=== PATIENT | female | born 1935 | race Caucasian/White ===

== ENCOUNTER → 2016-10-17 | Outpatient (CLI) | payer OTHER ==
[~2016-10-17] MED LIST: ASPEC81 PO; ATEN-173 PO; IBUP-103 PO; LEVO100T7 PO; MULT-506 PO; OMEG10007 PO; SYN75 PO
[2016-10-17 14:35] LABS: BASO % 0.6 %; BASO ABS # 0.05 K/uL (0-0.2); COMPLETE YES; EOS % 2.6 %; HEMATOCRIT 44.4 % (37-47); IG% 0.1 %; LYMPH % 43.1 %; MEAN CELL VOLUME 94.1 fL (80-100); MEAN CORPUSCULAR HEMOGLOBIN 32.2 pg (25-34); MEAN CORPUSCULAR HGB CONC 34.2 g/dl (32-36); MEAN PLATELET VOLUME 10.3 fL (7.4-10.4); MONO % 7.6 %; PLATELET COUNT 278 K/uL (130-400); RED BLOOD COUNT 4.72 M/uL (4.2-5.4); WHITE BLOOD COUNT 8.12 K/uL (4.8-10.8)
[2016-10-17 14:56] LABS: ALT/SGPT 28 U/L (12-78); BLOOD UREA NITROGEN 21 mg/dl (7-18); BUN/CREATININE RATIO 25.6 (10-20); CALCIUM 9.1 mg/dl (8.5-10.1); CARBON DIOXIDE 27 mmol/L (21-32); CHLORIDE 107 mmol/L (98-107); CREATININE 0.83 mg/dl (0.60-1.20); GLUCOSE 96 mg/dl (70-99); POTASSIUM 4.4 mmol/L (3.5-5.1); SODIUM 141 mmol/L (136-145)
[2016-10-17 15:04] LABS: ALB/GLOB RATIO 1.1 (0.9-2); ALKALINE PHOSPHATASE 81 U/L (45-117); AST/SGOT 21 U/L (15-37); CHOLESTEROL 223 mg/dl (0-200); CHOLESTEROL/HDL RATIO 3.6; HDL CHOLESTEROL 62 mg/dl; LDL CHOLESTEROL CALCULATED 134 mg/dl; TRIGLYCERIDES 136 mg/dl (0-150); VERY LOW DENSITY LIPOPROT CALC 27 mg/dl
== END | disposition home or self-care (01) ==
LOC: C.LABSPEC 13:13
PROVIDERS: ATTEND Family Medicine
DX: E03.9 Hypothyroidism, unspecified (principal); E78.2 Mixed hyperlipidemia; I10 Essential (primary) hypertension

== ENCOUNTER → 2017-04-19 | Outpatient (CLI) | payer OTHER ==
[~2017-04-19] MED LIST changes: -ASPEC81 PO; -SYN75 PO
== END | disposition home or self-care (01) ==
LOC: C.LABSPEC 17:50
PROVIDERS: ATTEND Family Medicine
DX: R31.9 Hematuria, unspecified (principal)

== ENCOUNTER 2017-05-02 04:50 | Inpatient (IN) | payer OTHER ==
--- NOTE | 2017-03-30 14:34 | PAT Medication Instructions ---
Service Date Mar 30, 2017. Current Home Medication List Atenolol (Tenormin), 25 MG PO QAM Fish Oil ([place]-3), 1 CAP PO QAM Ibuprofen Tab (Advil), 200 MG PO PRN Levothyroxine Sodium (Levothyroxine Sodium), 1 TAB PO QAM Multivitamin (Multivitamin), 1 TAB PO QAM Medication Instructions For Your Scheduled Surgery - Hold the following medications 2 weeks prior to surgery: Fish Oil ([place]-3), 1 CAP PO QAM - Hold the following medications 7 days prior to surgery PER SURGEON'S INSTRUCTIONS: Ibuprofen Tab (Advil), 200 MG PO PRN - Hold the following medications the morning of surgery: Multivitamin (Multivitamin), 1 TAB PO QAM - Take the following medications the morning of surgery with a sip of water OTHERWISE NOTHING TO EAT OR DRINK AFTER MIDNIGHT: Atenolol (Tenormin), 25 MG PO QAM Levothyroxine Sodium (Levothyroxine Sodium), 1 TAB PO QAM If you have any questions please call us at [phone] or [phone] or [phone]
[2017-03-30 15:17] LABS: BASO % 0.6 %; BASO ABS # 0.05 K/uL (0-0.2); COMPLETE YES; EOS % 2.3 %; HEMATOCRIT 41.4 % (37-47); IG% 0.3 %; LYMPH % 39.8 %; MEAN CELL VOLUME 93.7 fL (80-100); MEAN CORPUSCULAR HEMOGLOBIN 31.9 pg (25-34); MEAN CORPUSCULAR HGB CONC 34.1 g/dl (32-36); MEAN PLATELET VOLUME 10.1 fL (7.4-10.4); PLATELET COUNT 224 K/uL (130-400); RED BLOOD COUNT 4.42 M/uL (4.2-5.4); WHITE BLOOD COUNT 7.79 K/uL (4.8-10.8)
[2017-03-30 15:20] LABS: URINE APPEARANCE CLEAR (CLEAR); URINE BILIRUBIN NEG (NEG); URINE COLOR YELLOW; URINE EPITHELIAL CELL AUTO 0-5 /lpf (0-5); URINE NITRITE NEG (NEG); URINE PH 5.5 (4.5-7.5); URINE SPECIFIC GRAVITY 1.015 (1.000-1.030); UROBILINOGEN NEG (NEG)
[2017-03-30 15:22] LABS: MANUAL MICROSCOPIC REQUIRED? NO; REVIEW REQ? NO
[2017-03-30 15:27] LABS: PARTIAL THROMBOPLASTIN RATIO 1.1; PROTHROMBIN TIME (PATIENT) 10.5 SECONDS (9.0-12.0)
[2017-03-30 15:37] LABS: BUN/CREATININE RATIO 22.2 (10-20); CALCIUM 9.2 mg/dl (8.5-10.1); CREATININE 1.06 mg/dl (0.60-1.20); POTASSIUM 4.2 mmol/L (3.5-5.1)
--- NOTE | 2017-03-30 15:39 | DIAGNOSTIC IMAGING REPORT ---
TWO VIEW CHEST CLINICAL HISTORY: Preoperative examination. FINDINGS: PA and lateral chest radiographs are obtained. No prior studies are available for comparison at the time of dictation. The cardiomediastinal silhouette is unremarkable. There is atherosclerotic calcification of the thoracic aorta. Tiny calcified granulomas are noted in the right lung. The lungs and pleural spaces are otherwise clear. There is no pneumothorax. The skeletal structures are osteopenic. A left shoulder arthroplasty is in place. IMPRESSION: No active disease in the chest. Electronically signed by: Arsh Hsieh M.D. 03/30/2017 3:37 PM Dictated Date/Time: 03/30/2017 3:37 PM
[2017-03-31 07:18] LABS: ESTIMATED AVERAGE GLUCOSE 123 mg/dl; HA1C FLAG Normal (Normal)
--- NOTE | 2017-05-01 20:24 | HISTORY & PHYSICAL EXAMINATION ---
DATE OF ADMISSION: 05/02/2017 CHIEF COMPLAINT: Chronic left knee pain. HISTORY OF PRESENT ILLNESS: This is an 82-year-old female patient of Dr. Mejia, complaining of chronic left knee pain, longstanding, now progressively getting worse. The patient has failed conservative treatment including intraarticular injections and the use of anti-inflammatories. The patient has increased pain with weightbearing activities and her pain does interfere with her activities of daily living. PAST MEDICAL HISTORY: Hypertension, hypothyroidism, osteoarthritis, dental issues. SOCIAL HISTORY: Nonsmoker, nondrinker. SURGICAL HISTORY: Left shoulder surgery, right hip surgery. FAMILY HISTORY: Noncontributory. REVIEW OF SYSTEMS: The patient complains of chronic left knee pain, otherwise denies any shortness of breath, chest pain, nausea, vomiting or other joint complaints. MEDICATIONS: Synthroid 100 mcg daily, atenolol 25 mg daily and a multivitamin daily. ALLERGIES: INCLUDE MICRODANTIN, LATEX, OXYCODONE AND POLYSORB. PHYSICAL EXAMINATION: GENERAL: Well-developed, well-nourished 82-year-old female in no acute distress. She is alert and oriented x3 and pleasant. HEENT: Normocephalic, atraumatic. Extraocular motions are intact. Pupils are equal and reactive to light. HEART: Regular rate and rhythm, no murmurs appreciated. LUNGS: Clear. ABDOMEN: Soft and nontender, bowel sounds are present. EXTREMITIES: Left knee reveals a valgus deformity with 0-130 degrees of range of motion. She has lateral joint line tenderness. She has crepitation with passive range of motion. She has 5/5 strength. NEUROLOGIC AND NEUROVASCULAR: She is intact in her left lower extremity. DIAGNOSES: Left knee end-stage osteoarthritis with a history of hypertension, hypothyroidism, osteoarthritis, dental issues. PLAN: The patient was advised of her diagnosis. Indications, risks, benefits and postop course have all been reviewed. The patient wished to proceed with left total knee arthroplasty. Necessary consent forms, preoperative testing and clearances will be obtained.
[~2017-05-02] VITALS: Ht 154.9 cm; Wt 74.3 kg
[2017-05-02] VITALS (10 sets, daily range): BP systolic 144–179; BP diastolic 63–94; PULSE 52–94; TEMP 36.3–36.6; O2SAT 93–99; Ht 154.9 cm; Wt 74.3 kg
[2017-05-02] MEDS ORDERED: LACTATED RINGER'S 1000ML IV SCH (06:00)
[2017-05-02] MEDS ORDERED: LACTATED RINGER'S 1000ML 500 ML IV ONE (06:00)
[2017-05-02] MEDS ORDERED: LACTATED RINGER'S 1000ML 1,000 ML IV SCH (06:00)
[2017-05-02] MEDS ORDERED: FAMOTIDINE 20 MG TAB PO SCH (06:00)
[2017-05-02] MEDS ORDERED: ROPIVACAINE 5MG/ML 30 ML 150 MG, BUPIVACAINE 0.5% MPF INJ 30 ML, EpINEphrine HCL INJ 0.... INFIL SCH ×8 (06:00)
[2017-05-02] MEDS ORDERED: DEXAMETHASONE 4 MG TAB PO SCH (06:00)
[2017-05-02] MEDS ORDERED: GABAPENTIN 300 MG CAP PO SCH (06:00)
[2017-05-02] MEDS ORDERED: ACETAMINOPHEN 500 MG TAB PO SCH (06:00)
[2017-05-02] MEDS ORDERED: CeleBREX 200 MG CAP PO SCH (06:00)
[2017-05-02] MEDS ORDERED: METOCLOPRAMIDE HCL 10 MG TAB PO SCH (06:00)
[2017-05-02] MEDS ORDERED: BUPIVACAINE 0.5 % 5 MG/1 ML PF 10ML VIAL ONE (06:19)
[2017-05-02] MEDS ORDERED: BUPIVACAINE 0.25% 30 ML VIAL ONE (06:19)
[2017-05-02] MEDS ORDERED: EpINEphrine INJ 1MG/ML AMP 1 MG/ML AMP ONE (06:19)
[2017-05-02] MEDS ORDERED: DEXAMETHASONE SOD INJ 4 MG/ML VIAL ONE (06:20)
[2017-05-02] MEDS ORDERED: POVIDONE-IODINE OP SOLN 30 ML BTL ONE (06:28)
[2017-05-02] MEDS ORDERED: ORTHO JOINT ANESTHETIC ONE (06:28)
[2017-05-02] MEDS ORDERED: BACITRACIN 50000 UNIT VIAL ONE (06:29)
[2017-05-02] MEDS: TRANEXAMIC ACID INJ 1,000 MG in SYRINGE 0 ML IV SCH ×2 (06:30→07:04)
[2017-05-02] MEDS: CEFAZOLIN 1000MG IV PUSH 5 ML IV SCH ×2 (06:34→07:44)
[2017-05-02] MEDS ORDERED: FENTANYL CITRATE INJ 50 MCG/1 ML 2 ML VIAL ONE (06:45)
[2017-05-02] MEDS ORDERED: MIDAZOLAM HCL 1 MG/ML 2ML VIAL ONE (06:45)
--- NOTE | 2017-05-02 06:51 | History & Physical Bridge Note ---
H&P Re-Evaluation Bridge Note: I have examined the patient, reviewed the History & Physical and in the interval since the performance of the History & Physical I have noted the following changes of clinical significance: No changes noted
[2017-05-02] MEDS ORDERED: PROPOFOL IV EMULSION 10 MG/ML 20 ML VIAL IV ONE (08:01)
[2017-05-02] MEDS ORDERED: FENTANYL CITRATE INJ 50 MCG/1 ML 2 ML VIAL IV PRN (08:15)
[2017-05-02] MEDS ORDERED: ATROPINE SULFATE 0.1 MG/ML 5ML SYR IV PRN (08:15)
[2017-05-02] MEDS ORDERED: EpHEDrine SULFATE INJ 50 MG/ML AMP IV PRN (08:15)
[2017-05-02] MEDS ORDERED: ONDANSETRON INJ 2 MG/ML 2 ML VIAL IV PRN ×2 (08:15→09:00)
--- NOTE | 2017-05-02 08:29 | [facility] Post Operative Brief Note ---
Immediate Operative Summary Operative Date May 02, 2017. Pre-Operative Diagnosis Left Knee Degenerative Joint Disease Post-Operative Diagnosis Same as preop Procedure(s) Performed Left Total Knee Arthroplasty Surgeon Dr. Smith Size Painter Surgeon(s) Dell Whelan PA-C Estimated Blood Loss 10 ml Findings lateral compartment djd oa grade 4 valgus knee lateral meniscal tear Specimens A. Left Knee Bone and Tissue Drains 2 hemovac Anesthesia spinal adductor block orthomix Complication(s) None Disposition Recovery Room / PACU
--- NOTE | 2017-05-02 08:53 | OPERATIVE REPORT ---
DATE OF OPERATION: 05/02/2017 INDICATION FOR PROCEDURE: The patient is an 82-year-old female with chronic progressive osteoarthritis of left knee. X-rays demonstrates a valgus knee, she is [id number] in the lateral compartment. PREOPERATIVE DIAGNOSIS: End-stage osteoarthritis, left knee. POSTOPERATIVE DIAGNOSIS: Same. PROCEDURE: Left total knee arthroplasty. SURGEON: Rashad Smith MD. GROMMET MACHINE OPERATOR: JUSTINE Lovelace. ANESTHESIA: Spinal, adductor nerve block and Orthomix. OPERATIVE PROCEDURE: The patient taken to the operating room, anesthetized under anesthesia as dictated. Pneumatic tourniquet placed about the upper thigh. Left lower extremity was prepped and draped with ChloraPrep in usual sterile fashion. Leg was elevated, exsanguinated with Esmarch bandage. Pneumatic tourniquet was raised to 300 mmHg and later to 325 mmHg due to inadequate pressure at 300. The anterior incision made across the left knee. Skin was incised sharply. Subcutaneous flaps were elevated. She had some scarred and thickened prepatellar bursa that was resected. Incision was made through medial retinaculum and extended up in the mid third of the quadriceps tendon extending down to the medial tibial tubercle. Intraarticular findings demonstrated grade 4 DJD of the lateral compartment with lateral osteophytes and chronic lateral meniscus tear. I used the [employer]hew TheraVidney total knee arthroplasty system using [employer] MRI templating. She was sized for a 4 femur and 3 tibia. Exposure was performed by excising the infrapatellar fat pad, excising the meniscal remnants of the cruciate ligaments, released the lateral synovial bands. The fat pad over the anterior femur for placement of the component was resected. The knee was flexed. The femur was exposed. The custom femoral cutting block was pinned in position and the distal femoral cut was made. The size 4 5-1 cutting block was placed. The anterior, posterior and chamfer cuts were made. The knee was extended and a subperiosteal peel lateral release was performed around the patella. Patella width was measured and width was reproduced using a freehand cut technique and a 35 patella component. Drill holes were made for the patella component. The excess lateral facet of the patella was bevelled off to prevent any impingement. The tibia was then exposed and subluxed and the custom tibial cutting block was pinned in position and the proximal tibial cut was made. We used the lamina sales professional to assess ligamentous balance and there was ligamentous balance in extension and flexion. The tibia was re-exposed, size 3 tibial baseplate was externally rotated in line with the tibial tubercle, pinned in position. The punch for the stem was used. Then a 4 femoral trial was inserted, centered, the notch cutting devices were used. A collet was placed and a 13 trial insert gave balanced ligaments through full range of motion and patella tracked centrally. Trials were removed. The anesthetic cocktail was injected per protocol. The knee was copiously irrigated with pulsatile lavage antibiotic solution and bacitracin. Bony surfaces were dried. The final components were cemented with Simplex G cement. The final components were the 4 Oxinium left posterior stabilized [employer] Nephew Journey 2.0 femur, the 3 tibial baseplate, the 30 mm high flex posterior stabilized poly insert, and the 35 patella. While the cement cured, we used Betadine soak per protocol. The knee was then copiously irrigated with antibiotic solution and bacitracin. Two drains were brought out laterally and connected to a Hemovac. The quadriceps and medial retinaculum were closed with interrupted [id number] #1 Vicryl sutures. The knee was taken through full range of motion and repair was secured. The subcutaneous tissue was closed with interrupted 2-0 Vicryl sutures and then we used the Zip tie closure for the skin and routine sterile dressings and the patient tolerated the procedure well. Dell Whelan PA-C was my information assistant, function as information assistant for the entire procedure. He assisted in patient positioning, prepping, draping, assisted in soft tissue retraction, instrument management, leg positioning during the procedure and performed the fascial, subcutaneous and skin closure and will participate in postoperative care of the patient. I attest to the content of the Intraoperative Record and any orders documented therein. Any exception s are noted below.
[2017-05-02] MEDS ORDERED: METOCLOPRAMIDE HCL INJ 5 MG/ML 2 ML VIAL IV PRN (09:00)
[2017-05-02] MEDS ORDERED: TRAMADOL HCL 50 MG TAB PO PRN (09:00)
[2017-05-02] MEDS ORDERED: SOD PHOSPHATE/SOD BIPHOSPHATE ENEMA 132 ML BTL PR PRN (09:00)
[2017-05-02] MEDS ORDERED: MoRPHine SULFATE 2 MG/ML CARP IV PRN (09:00)
[2017-05-02] MEDS ORDERED: MAGNESIUM HYDROXIDE SUSP 30 ML UDC PO PRN (09:00)
[2017-05-02] MEDS ORDERED: BISACODYL 10 MG SUPP PR PRN (09:00)
[2017-05-02] MEDS ORDERED: ZOLPIDEM TARTRATE 5 MG TAB PO PRN (09:00)
[2017-05-02] MEDS ORDERED: CEFAZOLIN IV 1,000 MG in DEXTROSE 5% 50ML 50 ML IV SCH (09:00)
--- NOTE | 2017-05-02 09:48 | DIAGNOSTIC IMAGING REPORT ---
TWO VIEWS LEFT KNEE CLINICAL HISTORY: Postoperative examination. FINDINGS: AP and crosstable lateral portable views of the left knee are obtained. A left knee arthroplasty is in near anatomic alignment. There has been undersurface remodeling of the patella. No acute fracture is seen. There are expected postoperative changes around the knee including a surgical drain, soft tissue edema, and subcutaneous gas. IMPRESSION: Expected postoperative changes status post left knee arthroplasty. No acute fracture is seen. Electronically signed by: Arsh Hsieh M.D. 05/02/2017 9:47 AM Dictated Date/Time: 05/02/2017 9:47 AM
[2017-05-02] MEDS ORDERED: MoRPHine SULFATE 4 MG/ML 1 ML CARP\\VIAL IV PRN (11:15)
--- NOTE | 2017-05-02 11:27 | Anesthesiology Progress Note ---
Anesthesia Post Op Note Date & Time May 02, 2017 at 11:27 Vital Signs Pain Intensity: 0.0 Vital Signs Past 12 Hours Date Time Temp Pulse Resp B/P (MAP) Pulse Ox O2 Delivery O2 Flow Rate FiO2 05/02/17 11:10 36.3 54 18 150/72 (98) 98 Nasal Cannula 2.0 05/02/17 10:40 36.4 53 16 160/69 (99) 99 Nasal Cannula 2.0 05/02/17 10:10 36.4 57 16 144/69 (94) 96 Nasal Cannula 4.0 05/02/17 10:10 96 Nasal Cannula 4.0 05/02/17 10:10 96 Nasal Cannula 4.0 05/02/17 09:55 36.3 55 19 135/66 95 Nasal Cannula 2 05/02/17 09:45 56 18 140/66 97 Nasal Cannula 2 05/02/17 09:35 53 15 128/64 97 Nasal Cannula 2 05/02/17 09:25 54 15 132/64 96 Nasal Cannula 2 05/02/17 09:15 55 16 135/63 97 Nasal Cannula 2 05/02/17 09:05 55 13 131/60 96 Nasal Cannula 2 05/02/17 08:57 37.0 58 11 140/63 96 Nasal Cannula 2 05/02/17 05:58 36.6 52 20 179/94 96 Room Air 05/02/17 05:47 96 Room Air Notes Mental Status: alert / awake / arousable, participated in evaluation Pt Amnestic to Procedure: Yes Nausea / Vomiting: adequately controlled Pain: adequately controlled Airway Patency, RR, SpO2: stable & adequate BP & HR: stable & adequate Hydration State: stable & adequate Neuraxial Anesthesia: was administered, sensory block is resolving Anesthetic Complications: no major complications apparent
[2017-05-02] MEDS: MULTIVITAMIN TAB PO SCH (11:39)
[2017-05-02] MEDS: D5W AND 1/2NSS + 20MEQ KCL 1,000 ML IV SCH ×2 (11:39→21:31)
[2017-05-02] MEDS: PANTOprazole SOD 40 MG TAB PO SCH (11:40)
[2017-05-02] MEDS: CEFAZOLIN IV 1,000 MG in SYRINGE 0 ML IV SCH ×2 (14:01→21:36)
[2017-05-02] MEDS: ACETAMINOPHEN 500 MG TAB PO SCH ×2 (14:01→21:31)
[2017-05-02] MEDS: DOCUSATE SODIUM 100 MG CAP PO SCH (20:54)
[2017-05-02] MEDS: ASPIRIN 81 MG ECTAB PO SCH (20:54)
[2017-05-02] MEDS: CeleBREX 200 MG CAP PO SCH (20:54)
[2017-05-03 03:11] VITALS: BP 160/82; PULSE 50; TEMP 36.5; O2SAT 96
[2017-05-03] MEDS: ACETAMINOPHEN 500 MG TAB PO SCH ×3 (05:38→21:42)
[2017-05-03] MEDS: LEVOTHYROXINE 100 MCG TAB PO SCH (05:38)
[2017-05-03 06:15] LABS: HEMATOCRIT 38.8 % (37-47); MEAN CELL VOLUME 94.4 fL (80-100); MEAN CORPUSCULAR HEMOGLOBIN 32.6 pg (25-34); MEAN CORPUSCULAR HGB CONC 34.5 g/dl (32-36); MEAN PLATELET VOLUME 10.2 fL (7.4-10.4); PLATELET COUNT 245 K/uL (130-400); RED BLOOD COUNT 4.11 M/uL (4.2-5.4); WHITE BLOOD COUNT 18.21 K/uL (4.8-10.8)
[2017-05-03 06:50] LABS: BUN/CREATININE RATIO 20.7 (10-20); CALCIUM 8.7 mg/dl (8.5-10.1); CREATININE 0.81 mg/dl (0.60-1.20); POTASSIUM 4.3 mmol/L (3.5-5.1)
[2017-05-03 06:58] VITALS: BP 177/69; PULSE 54; TEMP 36.4; O2SAT 97
[2017-05-03] MEDS: MULTIVITAMIN TAB PO SCH (08:46)
[2017-05-03] MEDS: D5W AND 1/2NSS + 20MEQ KCL 1,000 ML IV SCH (08:46)
[2017-05-03] MEDS: PANTOprazole SOD 40 MG TAB PO SCH (08:47)
[2017-05-03] MEDS: ASPIRIN 81 MG ECTAB PO SCH ×2 (08:47→20:43)
[2017-05-03] MEDS: DOCUSATE SODIUM 100 MG CAP PO SCH ×2 (08:49→20:43)
[2017-05-03] MEDS: CeleBREX 200 MG CAP PO SCH ×2 (08:49→20:42)
[2017-05-03 08:56] VITALS: PULSE 60
--- NOTE | 2017-05-03 10:20 | Orthopedic Progress Note ---
Orthopedic Progress Note Date of Service May 03, 2017. Subjective Post OP Day: 1 Reports: feeling well, pain controlled w PO medications, Denies: complaints, chest pain, SOB, nausea / vomiting, light headedness, calf pain Objective calves soft nontender, N/V intact, capillary refill less than 2 sec., dressing C /D/I, A&O x3, toes mobile Date Time Temp Pulse Resp B/P (MAP) Pulse Ox O2 Delivery O2 Flow Rate FiO2 05/03/17 08:56 60 05/03/17 07:40 Room Air 05/03/17 06:58 36.4 54 18 177/69 (105) 97 Room Air 05/03/17 03:11 36.5 50 16 160/82 (108) 96 Room Air 05/03/17 00:20 Room Air 05/02/17 22:58 36.5 55 16 176/71 (106) 95 Room Air 05/02/17 19:39 36.6 60 18 144/65 (91) 93 Room Air 05/02/17 15:00 Room Air 05/02/17 14:58 36.4 94 18 158/66 (96) 94 Room Air 05/02/17 13:17 36.3 57 17 164/63 (96) 93 Room Air 05/02/17 12:10 36.3 56 17 163/69 (100) 98 Nasal Cannula 2.0 05/02/17 11:10 36.3 54 18 150/72 (98) 98 Nasal Cannula 2.0 05/02/17 10:40 36.4 53 16 160/69 (99) 99 Nasal Cannula 2.0 Laboratory Results 24 Hours: Test 05/03/17 06:04 Hematocrit 38.8 % Hemoglobin 13.4 g/dL Assessment & Plan Assessment: POD #1, Left TKA Plan: PT/ OT DVT proph- ASA D/C planning- Home w HH Inhouse Planning Pain Management: Celebrex, Ultram, Morphine, PO Tylenol DVT Prophylaxis: TEDs, SCDs, ASA Discharge Planning Discharge Planning: home with home health Pain Management: Ultram, PO Tylenol DVT Prophylaxis: ASA Therapy: Physical Therapy, Occupational Therapy
[2017-05-03 11:01] VITALS: BP 142/58; PULSE 49; TEMP 36.4; O2SAT 96
[2017-05-03 15:01] VITALS: BP 153/68; PULSE 48; TEMP 36.5; O2SAT 95
[2017-05-03] MEDS ORDERED: LISINOPRIL 5 MG TAB PO ONE (15:30)
--- NOTE | 2017-05-03 15:48 | Medical Consult ---
Consultation Date of Consultation: May 03, 2017. Attending Physician: Rashad Smith M.D. Reason for Consultation: Medical management History of Present Illness Pt is an 82 yo female patient with hx of HTN, hypothyroidism and arthritis. Failed conservative measures as an outpatient for worsening chronic left knee pain. Pt consulted to our services for medical managment. Tolerating PT. Pain controlled. Denies any chest pain, shortness of breath, fevers, chills, worsening joint pain. Social History Smoking Status: Never Smoker Alcohol Use: none Allergies Coded Allergies: [place] (Verified Allergy, Unknown, ITCHY, 05/02/17) Potato (Verified Allergy, Unknown, SORE JOINT, 05/02/17) Tomato (Verified Allergy, Unknown, ITCHY, 05/02/17) Unclassified Drugs (Verified Allergy, Unknown, POLYSORB SUTURE-CAME UP THROUGH SUTURE LUNE IN WELTS, 05/02/17) Latex (Verified Adverse Reaction, Unknown, ITCHY SKIN, 05/02/17) Nitrofurantoin (Verified Adverse Reaction, Unknown, ITCHING, 05/02/17) Oxycodone (Verified Adverse Reaction, Unknown, PASSED OUT COLD, 05/02/17) Current Inpatient Medications Current Inpatient Medications Medications (Trade) Dose Ordered Sig/Ailin Route Start Time Stop Time Status Last Admin Dose Admin Levothyroxine Sodium (Synthroid Tab) 100 mcg DAILYBB PO 05/03/17 06:00 06/02/17 05:59 05/03/17 05:38 100 MCG Celecoxib (CeleBREX CAP) 200 mg BID PO 05/02/17 21:00 06/01/17 20:59 05/03/17 08:49 200 MG Morphine Sulfate (MoRPHine SULFATE INJ) 2 mg Q2H PRN IV 05/02/17 09:00 05/16/17 08:59 Acetaminophen (Tylenol Tab) 1,000 mg Q8 PO 05/02/17 14:00 06/01/17 13:59 05/03/17 13:28 1,000 MG Magnesium Hydroxide (Milk Of Magnesia Susp) 30 ml Q6H PRN PO 05/02/17 09:00 06/01/17 08:59 Bisacodyl (Dulcolax Supp) 10 mg DAILY PRN [place] 05/02/17 09:00 06/01/17 08:59 Sodium Biphosphate/ Sodium Phosphate (Fleet Enema) 132 ml DAILY PRN [place] 05/02/17 09:00 06/01/17 08:59 Docusate Sodium (coLACE CAP) 100 mg BID PO 05/02/17 21:00 06/01/17 20:59 05/03/17 08:49 100 MG Diphenhydramine HCl (Benadryl Cap) 25 mg Q8H PRN PO 05/02/17 09:00 06/01/17 08:59 Zolpidem Tartrate (Ambien Tab) 5 mg HSZ PRN PO 05/02/17 09:00 06/01/17 08:59 Multivitamins (Multivitamin Tab) 1 tab QAM PO 05/02/17 09:00 06/01/17 08:59 05/03/17 08:46 1 TAB Ondansetron HCl (Zofran Inj) 4 mg Q6H PRN IV 05/02/17 09:00 06/01/17 08:59 Metoclopramide HCl (Reglan Inj) 10 mg Q6H PRN IV 05/02/17 09:00 06/01/17 08:59 Pantoprazole Sodium (Protonix Tab) 40 mg QAM PO 05/02/17 09:00 06/01/17 08:59 05/03/17 08:47 40 MG Tramadol HCl (Ultram Tab) 1 tablet for pain rating... Q4H PRN PO 05/02/17 09:00 06/01/17 08:59 05/03/17 08:50 50 MG Aspirin (Ecotrin Tab) 81 mg BID PO 05/02/17 21:00 06/01/17 20:59 05/03/17 08:47 81 MG Morphine Sulfate (MoRPHine SULFATE INJ) 4 mg Q2H PRN IV 05/02/17 11:15 05/16/17 11:14 Lisinopril (Zestril Tab) 10 mg QAM PO 05/04/17 09:00 06/03/17 08:59 Review of Systems Constitutional: No fever, No chills, No sweats, No weakness Eyes: No worsening of vision, No eye pain, No redness, No discharge Respiratory: No cough, No sputum, No wheezing, No shortness of breath Cardiovascular: No chest pain, No orthopnea, No PND, No edema Abdomen: No pain, No nausea, No vomiting, No diarrhea Musculoskeletal: No joint pain, No muscle pain, No swelling, No calf pain Genitourinary - Female: No dysuria, No urinary frequency, No urinary urgency, No urinary incontinence Neurologic: No memory loss, No paralysis, No weakness, No numbness/tingling Psychiatric: No depression symptoms, No anhedonism, No anxiety, No insomnia Endocrine: No fatigue, No excessive thirst Integumentary: No rash, No itch Physical Exam Date Time Temp Pulse Resp B/P (MAP) Pulse Ox O2 Delivery O2 Flow Rate FiO2 05/03/17 15:01 36.5 48 16 153/68 (96) 95 Room Air 05/03/17 11:01 36.4 49 16 142/58 (86) 96 Room Air 05/03/17 08:56 60 05/03/17 07:40 Room Air 05/03/17 06:58 36.4 54 18 177/69 (105) 97 Room Air 05/03/17 03:11 36.5 50 16 160/82 (108) 96 Room Air 05/03/17 00:20 Room Air 05/02/17 22:58 36.5 55 16 176/71 (106) 95 Room Air 05/02/17 19:39 36.6 60 18 144/65 (91) 93 Room Air General Appearance: WD/WN, no apparent distress Head: normocephalic, atraumatic Eyes: normal inspection, PERRL, EOMI, sclerae normal ENT: normal ENT inspection, hearing grossly normal, TMs normal, pharynx normal Neck: supple, no adenopathy, thyroid normal, no JVD Respiratory/Chest: chest non-tender, lungs clear, normal breath sounds, no respiratory distress Cardiovascular: regular rate, rhythm, no edema, no gallop, no JVD Abdomen/GI: normal bowel sounds, non tender, soft, no organomegaly Back: normal inspection, no CVA tenderness, no muscle spasm, normal range of motion Extremities/Musculoskelatal: normal inspection, no calf tenderness, normal capillary refill, no pedal edema Neurologic/Psych: alert, normal mood/affect, normal reflexes, oriented x 3 Skin: normal color, warm/dry, no rash Lymphatic: no adenopathy Laboratory Results Last 24 Hours Test 05/03/17 06:04 White Blood Count 18.21 K/uL Red Blood Count 4.11 M/uL Hemoglobin 13.4 g/dL Hematocrit 38.8 % Mean Corpuscular Volume 94.4 fL Mean Corpuscular Hemoglobin 32.6 pg Mean Corpuscular Hemoglobin Concent 34.5 g/dl RDW Standard Deviation 42.9 fL RDW Coefficient of Variation 12.5 % Platelet Count 245 K/uL Mean Platelet Volume 10.2 fL Sodium Level 136 mmol/L Potassium Level 4.3 mmol/L Chloride Level 106 mmol/L Carbon Dioxide Level 25 mmol/L Anion Gap 5.0 mmol/L Blood Urea Nitrogen 17 mg/dl Creatinine 0.81 mg/dl Est Creatinine Clear Calc Drug Dose 47.6 ml/min Estimated GFR () 77.3 Estimated GFR (Non- 66.7 BUN/Creatinine Ratio 20.7 Random Glucose 123 mg/dl Calcium Level 8.7 mg/dl Assessment & Plan Chronic left knee pain. S/P TKA POD# 1. Monitor for acute blood loss anemia. Pain controlled. PT consulted. Likely DC in AM per primary team HTN uncontrolled. Please discontinue atenolol due to bradycardia and start on lisinopril, which should be provided on discharge. Hypothyroidism. Cont synthroid at this time Arthritis pain controlled Pt is FULL CODE
[2017-05-03 23:37] VITALS: BP 153/67; PULSE 51; TEMP 36.3; O2SAT 94
[2017-05-04] MEDS: ACETAMINOPHEN 500 MG TAB PO SCH ×2 (05:42→14:16)
[2017-05-04] MEDS: LEVOTHYROXINE 100 MCG TAB PO SCH (05:42)
[2017-05-04 05:58] LABS: HEMATOCRIT 36.8 % (37-47); MEAN CELL VOLUME 94.4 fL (80-100); MEAN CORPUSCULAR HEMOGLOBIN 32.6 pg (25-34); MEAN CORPUSCULAR HGB CONC 34.5 g/dl (32-36); MEAN PLATELET VOLUME 10.5 fL (7.4-10.4); PLATELET COUNT 226 K/uL (130-400); WHITE BLOOD COUNT 13.41 K/uL (4.8-10.8)
[2017-05-04 06:06] VITALS: BP 131/55; PULSE 55; TEMP 36.5; O2SAT 96
[2017-05-04 06:32] LABS: CALCIUM 8.4 mg/dl (8.5-10.1); CREATININE 0.98 mg/dl (0.60-1.20); POTASSIUM 4.1 mmol/L (3.5-5.1)
[2017-05-04] MEDS: CeleBREX 200 MG CAP PO SCH (07:30)
[2017-05-04] MEDS: MULTIVITAMIN TAB PO SCH (07:30)
[2017-05-04] MEDS: PANTOprazole SOD 40 MG TAB PO SCH (07:30)
[2017-05-04] MEDS: ASPIRIN 81 MG ECTAB PO SCH (07:30)
[2017-05-04] MEDS: DOCUSATE SODIUM 100 MG CAP PO SCH (07:31)
[2017-05-04 08:26] VITALS: O2SAT 96
[2017-05-04] MEDS ORDERED: LISINOPRIL 10 MG TAB PO SCH (09:00)
[2017-05-04 09:38] VITALS: BP 143/67; PULSE 53; TEMP 36.9; O2SAT 97
--- NOTE | 2017-05-04 09:41 | Orthopedic Progress Note ---
Orthopedic Progress Note Date of Service May 04, 2017. Subjective Post OP Day: 2 Reports: feeling well, pain controlled w PO medications, Denies: complaints, chest pain, SOB, nausea / vomiting, light headedness, calf pain Additional Notes: PER PT, PATIENT GOT FLUSH AND HYPOTENSIVE IN PT ONE TIME. PATIENT STATES THAT THIS HAPPENS FROM TIME TO TIME, IN BED NOW BP 143/67. BP HAS BEEN STABLE THROUGHOUT HOSPITAL COURSE. Objective Date Time Temp Pulse Resp B/P (MAP) Pulse Ox O2 Delivery O2 Flow Rate FiO2 05/04/17 08:26 96 Room Air 05/04/17 07:48 Room Air 05/04/17 06:06 36.5 55 16 131/55 (80) 96 Room Air 05/03/17 23:37 36.3 51 15 153/67 (95) 94 Room Air 05/03/17 19:15 Room Air 05/03/17 15:01 36.5 48 16 153/68 (96) 95 Room Air 05/03/17 11:01 36.4 49 16 142/58 (86) 96 Room Air Laboratory Results 24 Hours: Test 05/04/17 05:20 Hematocrit 36.8 % Hemoglobin 12.7 g/dL Assessment & Plan Assessment: POD #2, Left TKA Plan: PT/ OT DVT proph- ASA D/C planning- Home w HH TODAY AFTER AFTERNOON PT AND IF BP STABLE AND ASYMPTOMATIC. Inhouse Planning Pain Management: Celebrex, Ultram, Morphine, PO Tylenol DVT Prophylaxis: TEDs, SCDs, ASA Discharge Planning Discharge Planning: home with home health Pain Management: Ultram, PO Tylenol DVT Prophylaxis: ASA Therapy: Physical Therapy, Occupational Therapy
[2017-05-04] MEDS ORDERED: ACET-24 PO (09:43)
[2017-05-04] MEDS ORDERED: CLB200 PO (09:43)
[2017-05-04] MEDS ORDERED: ULT50X PO (09:43)
[2017-05-04] MEDS ORDERED: LSN10 PO (09:43)
[2017-05-04] MEDS ORDERED: ASPEC81 PO (09:43)
--- NOTE | 2017-05-04 09:48 | Discharge Instructions ---
Discharge Instructions Date of Service May 04, 2017. Admission Reason for Admission: Left Knee Osteoarthritis Discharge Discharge Diagnosis / Problem: LEFT TKA Discharge Goals Goal(s): Improve function Activity Recommendations Activity Limitations: as noted below . Instructions / Follow-Up Instructions / Follow-Up ACTIVITY RECOMMENDATIONS: SELF CARE INSTRUCTIONS AFTER TOTAL KNEE REPLACEMENT A. You may need to continue a physical therapy program after discharge from the hospital. There are several options available to you. Your doctor will assist you in selecting the best one for you. 1. An out-patient facility 2 to 3 times a week for therapy or home therapy. 2. Continue working on all exercises taught to you in the hospital. Your goals should be to increase bending of your knee to 90 degrees and beyond and to fully straighten your knee. B. You may progress at your own pace from walking with a walker or crutches to a cane; then to no assistive devices. C. Make walking a part of your daily routine. Be up as much as comfortable with rest periods throughout the day. Rest with leg elevation is very important. Use the ice wrap frequently for the first 3-4 weeks. D. There are no restrictions on activities. 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 E. Wear the long elastic stockings (REBECCA hose) 20 hours a day for 2 weeks after surgery. They can be removed several times a day for laundering and for a bath. F. You may shower, no tub baths until cleared by your doctor. SPECIAL CARE INSTRUCTIONS: VERY IMPORTANT TO READ AND REVIEW A. There are a few signs you need to watch for after you are home. Call [facility] if you notice any of the followin. Increased severe knee pain. Some pain is expected especially when you exercise. 2. Increased swelling in your leg or knee; pain or swelling of the calf muscle in either lower leg. 3. Any fluid drainage from the incision. 4. Shortness of breath or chest pain. B. Please call [facility] at if you have any concerns or questions about your operation or recovery. The doctor or his nurse will return your call promptly. C. You must take antibiotics before dental work, bladder, bowel or other surgery. Your doctor will provide you with a permanent care to carry describing this precaution. IMPORTANT: * REMEMBER TO TAKE ASPIRIN, 81 MG, TWICE DAILY FOR 4 WEEKS UNLESS OTHERWISE DIRECTED. THIS IS YOUR BLOOD THINNER. * HIGH RISK PATIENTS MAY BE PRESCRIBED A STRONGER BLOOD THINNER. THIS WILL BE PROVIDED AT DISCHARGE. * CALL IF INCREASED PAIN, REDNESS, DRAINAGE OR FEVER GREATER THAT 101. * WEAR REBECCA HOSE 20 HOURS PER DAY FOR 2 WEEKS. * YOU MAY HAVE A LARGE BAND-AID LIKE DRESSING (SILVERON). THIS WILL REMAIN ON YOUR INCISION FOR 7 DAYS, THEN CAN BE REMOVED. IF INCISION IS LEAKING THROUGH DRESSING, CALL THE OFFICE . FOLLOW UP VISIT: If appointment is not already scheduled: Please call [facility] to make a follow-up appointment for 2 weeks after your surgery at . PER MEDICAL CONSULTATION, ATENOLOL IS TO BE STOPPED DUE TO LOW HEART RATE AND REPLACED WITH LISINOPRIL, THIS MEDICATION HAS BEEN TRANSMITTED TO YOUR PHARMACY ON FILE. FOLLOW UP WITH YOUR PCP CONCERNING YOUR BLOOD PRESSURE MEDICATIONS NEXT WEEK. Current Hospital Diet Patient's current hospital diet: Regular Diet Discharge Diet Recommended Diet: Regular Diet Procedures Procedures Performed: Left Total Knee Arthroplasty Pending Studies Studies pending at discharge: no Laboratory Results Hemoglobin A1c Test 03/30/17 14:46 Range/Units Estimated Average Glucose 123 mg/dl Hemoglobin A1c 5.9 H 4.5-5.6 % Medical Emergencies . Who to Call and When: Medical Emergencies: If at any time you feel your situation is an emergency, please call 911 immediately. . Non-Emergent Contact Non-Emergency issues call your: Primary Care Provider . "Provider Documentation" section prepared by Dell Whelan. . VTE Core Measure Inpt VTE Proph given/why not?: Other Anticoagulation (ASA), T.E.DNayeli Murry, SCD's [place] Drug Monitoring Program Search Results: patient reviewed within database, no issues identified
[2017-05-04 13:45] VITALS: BP 143/67; PULSE 53; TEMP 36.9; O2SAT 97
== END 2017-05-04 14:30 | disposition home health service (06) | DRG 470 ==
LOC: C.ACU 04:50 → C.3E 06:42 → ENRESERV 09:23
PROVIDERS: ADMIT Orthopaedic Surgery Sports Medicine; ATTEND Orthopaedic Surgery Sports Medicine
PROC: 0SRD0J9 Replacement of Left Knee Joint with Synthetic Substitute, Cemented, Open Approach (ICD-10-PCS; principal; 2017-05-02 07:00)
DX: M17.12 Unilateral primary osteoarthritis, left knee (principal); I10 Essential (primary) hypertension; E03.9 Hypothyroidism, unspecified

== ENCOUNTER → 2017-05-11 | Outpatient (CLI) | payer OTHER ==
[~2017-05-11] MED LIST changes: +ACET-24 PO; +ASPEC81 PO; -ATEN-173 PO; +CLB200 PO; -IBUP-103 PO; +LSN10 PO; +ULT50X PO
[2017-05-11 14:05] LABS: ALT/SGPT 36 U/L (12-78); BLOOD UREA NITROGEN 26 mg/dl (7-18); BUN/CREATININE RATIO 21.2 (10-20); CALCIUM 8.9 mg/dl (8.5-10.1); CARBON DIOXIDE 27 mmol/L (21-32); CHLORIDE 103 mmol/L (98-107); CREATININE 1.23 mg/dl (0.60-1.20); GLUCOSE 90 mg/dl (70-99); POTASSIUM 4.7 mmol/L (3.5-5.1); SODIUM 136 mmol/L (136-145)
[2017-05-11 14:08] LABS: ALB/GLOB RATIO 0.9 (0.9-2); ALKALINE PHOSPHATASE 82 U/L (45-117); AST/SGOT 23 U/L (15-37)
== END | disposition home or self-care (01) ==
LOC: C.LABSPEC 13:20
PROVIDERS: ATTEND Family Medicine
DX: I10 Essential (primary) hypertension (principal)

== ENCOUNTER → 2017-06-12 | Outpatient (CLI) | payer OTHER ==
[2017-06-12 14:31] LABS: BASO % 0.4 %; BASO ABS # 0.04 K/uL (0-0.2); EOS % 2.9 %; EOS ABS # 0.32 K/uL (0-0.5); HEMATOCRIT 42.4 % (37-47); HEMOGLOBIN 14.5 g/dL (12.0-16.0); IG# 0.03 K/uL (0.00-0.02); LYMPH % 29.5 %; LYMPH ABS # 3.28 K/uL (1.2-3.4); MEAN CELL VOLUME 96.6 fL (80-100); MEAN CORPUSCULAR HGB CONC 34.2 g/dl (32-36); MEAN PLATELET VOLUME 10.6 fL (7.4-10.4); MONO % 8.8 %; MONO ABS # 0.98 K/uL (0.11-0.59); NEUT % 58.1 %; NEUT ABS # 6.45 K/uL (1.4-6.5); PLATELET COUNT 375 K/uL (130-400); RED CELL DISTRIBUTION WIDTH SD 46.3 fL (36.4-46.3)
[2017-06-12 15:08] LABS: ALBUMIN 3.5 gm/dl (3.4-5.0); ALT/SGPT 25 U/L (12-78); AST/SGOT 14 U/L (15-37); BLOOD UREA NITROGEN 26 mg/dl (7-18); CALCIUM 9.4 mg/dl (8.5-10.1); CARBON DIOXIDE 27 mmol/L (21-32); CREATININE 1.24 mg/dl (0.60-1.20); GLUCOSE 92 mg/dl (70-99); POTASSIUM 4.4 mmol/L (3.5-5.1); SODIUM 137 mmol/L (136-145)
[2017-06-12 15:17] LABS: ALKALINE PHOSPHATASE 93 U/L (45-117); TOTAL PROTEIN 7.7 gm/dl (6.4-8.2)
== END | disposition home or self-care (01) ==
LOC: C.LABSPEC 12:20
PROVIDERS: ATTEND Family Medicine
DX: I95.9 Hypotension, unspecified (principal); R00.0 Tachycardia, unspecified

== ENCOUNTER → 2017-09-17 | Outpatient (CLI) | payer OTHER ==
[~2017-09-17] MED LIST changes: -ASPEC81 PO; +ASPI-320 PO
[2017-09-17 18:19] LABS: BASO % 0.3 %; BASO ABS # 0.02 K/uL (0-0.2); EOS % 2.1 %; EOS ABS # 0.14 K/uL (0-0.5); HEMATOCRIT 43.8 % (37-47); HEMOGLOBIN 15.5 g/dL (12.0-16.0); IG# 0.02 K/uL (0.00-0.02); LYMPH % 35.6 %; LYMPH ABS # 2.42 K/uL (1.2-3.4); MEAN CELL VOLUME 91.8 fL (80-100); MEAN CORPUSCULAR HEMOGLOBIN 32.5 pg (25-34); MEAN CORPUSCULAR HGB CONC 35.4 g/dl (32-36); MEAN PLATELET VOLUME 10.6 fL (7.4-10.4); MONO % 7.9 %; MONO ABS # 0.54 K/uL (0.11-0.59); NEUT % 53.8 %; NEUT ABS # 3.66 K/uL (1.4-6.5); PLATELET COUNT 266 K/uL (130-400); RED CELL DISTRIBUTION WIDTH CV 12.9 % (11.5-14.5); RED CELL DISTRIBUTION WIDTH SD 43.1 fL (36.4-46.3)
[2017-09-17 18:27] LABS: ALBUMIN 3.8 gm/dl (3.4-5.0); ALT/SGPT 29 U/L (12-78); AST/SGOT 21 U/L (15-37); BLOOD UREA NITROGEN 23 mg/dl (7-18); CARBON DIOXIDE 27 mmol/L (21-32); CHOLESTEROL 200 mg/dl (0-200); CREATININE 0.81 mg/dl (0.60-1.20); GLUCOSE 86 mg/dl (70-99); POTASSIUM 4.4 mmol/L (3.5-5.1); SODIUM 137 mmol/L (136-145)
[2017-09-17 18:36] LABS: ALKALINE PHOSPHATASE 90 U/L (45-117); LDL CHOLESTEROL CALCULATED 107 mg/dl; TOTAL PROTEIN 7.9 gm/dl (6.4-8.2)
== END | disposition home or self-care (01) ==
LOC: C.LABSPEC 17:34
PROVIDERS: ATTEND Family Medicine
DX: E78.2 Mixed hyperlipidemia (principal); I95.9 Hypotension, unspecified; E03.9 Hypothyroidism, unspecified